=== PATIENT | female | born 1995 | race African-American/Black ===

== ENCOUNTER 2017-07-13 05:06 | Emergency (ER) | payer SELFPAY ==
[2017-07-13] MEDS ORDERED: Ketorolac Tromethamine 30 MG/ML VIAL ONE (05:26)
[2017-07-13] MEDS ORDERED: Amoxicillin/Potassium Clav 875 MG TAB ONE (05:35)
== END 2017-07-13 06:25 | disposition home or self-care (01) ==
LOC: ERS 05:06
DX: K02.9 Dental caries, unspecified (principal); M54.2 Cervicalgia
CPT/HCPCS: 96372; J1885

== ENCOUNTER 2019-04-24 23:19 | Emergency (ER) | payer SELFPAY | END 2019-04-25 01:58 | disposition home or self-care (01) | LOC: ERS 23:19 | DX: M54.2 Cervicalgia (principal) | CPT/HCPCS: 99281 ==

== ENCOUNTER 2021-02-08 18:57 | Emergency (ER) | payer OTHER, SELFPAY | END 2021-02-08 19:35 | disposition home or self-care (01) | LOC: ERS 18:57 | DX: S16.1XXA Strain of muscle, fascia and tendon at neck level, initial encounter (principal); V49.9XXA Car occupant (driver) (passenger) injured in unspecified traffic accident, initial encounter | CPT/HCPCS: 99283 ==

== ENCOUNTER 2022-11-11 22:25 | Emergency (ER) | payer SELFPAY ==
[~2022-11-11 22:25] MED LIST: Iopamidol-370 76% 500 ML 1 ML ONE
[2022-11-11] MEDS ORDERED: Ondansetron PF 4 MG/2 ML Vial ONE (23:04)
[2022-11-11] MEDS ORDERED: Morphine 4 MG/ML VIAL ONE (23:04)
[2022-11-11 23:08] LABS: BHCG - Serum Negative (NEGATIVE); Pregs Control Background? CLEAR/WHITE (CLR/WHITE); Pregs Control Bar Appear? YES (CONTROL BAR)
[2022-11-11 23:09] LABS: Hemoglobin 14.4 g/dL (12.0-16.0); Mean Corpuscular Hemoglobin 29.5 pg (27.0-31.0); Mean Corpuscular Volume 89.4 fl (78.0-98.0); RBC Distribution Width 12.9 % (11.5-14.5); Red Blood Cell (RBC) Count 4.89 mill/uL (4.20-5.40); White Blood Cell (WBC) Count 7.3 10x3/uL (4.8-10.8)
[2022-11-11 23:10] LABS: Bilirubin Negative (Negative); Blood, Urine Negative (Negative); Clarity Clear (Clear); Glucose, Urine (Dipstick) Normal (Negative); Ketone, Urine Negative (Negative); Leukocyte Negative Leu/uL (Negative); Nitrite Negative (Negative); Protein, Urine (Dipstick) Negative (Neg-Trace); Specific Gravity, Urine 1.008 (1.002-1.036); Urobilinogen Normal mg/dL (Less than 2); pH, Urine 6.5 (5.0-9.0)
[2022-11-11 23:22] LABS: ALT (SGPT) 21 U/L (8-55); AST (SGOT) 20 U/L (5-34); Albumin 3.7 g/dL (3.5-5.0); Alkaline Phosphatase 57 U/L (40-110); Anion Gap 17 mmol/L (10-20); BUN (Urea Nitrogen) 13 mg/dL (7.0-18.7); Bilirubin, Total 0.3 mg/dL (0.2-1.2); Calc. Creatinine Clearance 0 mL/min (70-130); Calcium 8.7 mg/dL (7.8-10.44); Carbon Dioxide 21 mmol/L (22-29); Chloride 104 mmol/L (98-107); Estimated GFR 73; Globulin 2.8 g/dL (2.4-3.5); Glucose 93 mg/dL (70-105); Lipase 37 U/L (8-78); Potassium 3.5 mmol/L (3.5-5.1); Protein, Total 6.5 g/dL (6.0-8.3); Sodium 138 mmol/L (136-145)
[2022-11-11 23:38] LABS: #Basophils 0.1 thou/uL (0.0-0.2); #Eosinphils 0.1 thou/uL (0.0-0.7); #Lymphocytes 2.2 thou/uL (1.20-3.40); #Monocytes 0.6 thou/uL (0.11-0.59); #Neutrophils 4.3 thou/uL (1.40-6.50); %Basophils 0.9 % (0.0-1.0); %Eosinophils 1.6 % (0.0-10.0); %Lymphocytes 30.3 % (21.0-51.0); %Monocytes 7.9 % (0.0-10.0); %Neutrophils 59.4 % (42.0-75.0); Large Platelets SLIGHT; MDiff Complete? YES; Mean Platelet Volume 11.4 fL (7.4-10.4); Platelet Count 107 10x3/uL (130-400); Platelet Morphology Comment Appears Decreased
[2022-11-12] MEDS ORDERED: cefTRIAXone\\ROCEPHIN 2 GM VIAL ONE (00:12)
== END 2022-11-12 02:32 | disposition home or self-care (01) ==
LOC: ERS 22:25
DX: R10.84 Generalized abdominal pain (principal); F17.210 Nicotine dependence, cigarettes, uncomplicated
CPT/HCPCS: 36415; 74177; 76856; 80053; 81003; 83605; 83690; 84703; 85025; 96374; 96375; J0696; J2270; J2405; Q9967

== ENCOUNTER 2023-08-08 08:50 | Emergency (ER) | payer OTHER, SELFPAY ==
[2023-08-08] MEDS ORDERED: Ketorolac Tromethamine 30 MG/ML VIAL ONE (09:01)
== END 2023-08-08 11:00 | disposition home or self-care (01) ==
LOC: ERS 08:50
DX: R09.1 Pleurisy (principal); Z87.891 Personal history of nicotine dependence
CPT/HCPCS: 71045; 96372; J1885

== ENCOUNTER 2023-09-08 14:33 | Emergency (ER) | payer OTHER ==
[2023-09-08] MEDS ORDERED: Mag-Al 1200 mg/1200 mg/30 ML UDCUP ONE (15:05)
[2023-09-08] MEDS ORDERED: Milk Of Magnesia 30 ML UDCUP ONE (15:09)
[2023-09-08 15:30] LABS: Bacteria/HPF None Seen HPF (None Seen); Bilirubin Negative (Negative); Blood, Urine 3+ (Negative); CAUTI Indications for Culture Pelvic or flank pain; Clarity Clear (Clear); Glucose, Urine (Dipstick) Normal (Negative); Ketone, Urine Negative (Negative); Leukocyte Negative Leu/uL (Negative); Nitrite Negative (Negative); Protein, Urine (Dipstick) Negative (Neg-Trace); Specific Gravity, Urine 1.033 (1.002-1.036); Squamous Epithelial 0-3 HPF (0-3); Urobilinogen Normal mg/dL (Less than 2); WBC/HPF 0-3 HPF (0-3); pH, Urine 5.5 (5.0-9.0)
[2023-09-08 15:33] LABS: Urine Culture Reflex No No
[2023-09-08 15:40] LABS: #Eosinphils 0.1 thou/uL (0.0-0.7); #Monocytes 0.7 thou/uL (0.11-0.59); #Neutrophils 5.5 thou/uL (1.40-6.50); %Basophils 0.4 % (0.0-1.0); %Eosinophils 1.2 % (0.0-10.0); %Lymphocytes 30.8 % (21.0-51.0); %Monocytes 7.3 % (0.0-10.0); %Neutrophils 59.6 % (42.0-75.0); Hematocrit 43.8 % (36.0-47.0); Hemoglobin 14.4 g/dL (12.0-16.0); Mean Corpuscular HGB CONC 32.9 g/dL (32.0-36.0); Mean Corpuscular Hemoglobin 29.1 pg (27.0-31.0); Mean Corpuscular Volume 88.5 fl (78.0-98.0); Mean Platelet Volume 12.7 fL (7.4-10.4); Platelet Count 149 10x3/uL (130-400); RBC Distribution Width 13.6 % (11.5-14.5); Red Blood Cell (RBC) Count 4.95 mill/uL (4.20-5.40); White Blood Cell (WBC) Count 9.2 10x3/uL (4.8-10.8)
[2023-09-08 16:03] LABS: ALT (SGPT) 20 U/L (8-55); AST (SGOT) 18 U/L (5-34); Albumin 3.4 g/dL (3.5-5.0); Alkaline Phosphatase 60 U/L (40-110); Anion Gap 10 mmol/L (10-20); BUN (Urea Nitrogen) 13 mg/dL (7.0-18.7); Bilirubin, Total 0.3 mg/dL (0.2-1.2); Calc. Creatinine Clearance 0 mL/min (70-130); Calcium 8.1 mg/dL (7.8-10.44); Carbon Dioxide 23 mmol/L (22-29); Chloride 110 mmol/L (98-107); Estimated GFR 85; Globulin 2.4 g/dL (2.4-3.5); Glucose 93 mg/dL (70-105); Lipase 24 U/L (8-78); Protein, Total 5.8 g/dL (6.0-8.3); Sodium 139 mmol/L (136-145)
== END 2023-09-08 17:52 | disposition home or self-care (01) ==
LOC: ERS 14:33
DX: K21.9 Gastro-esophageal reflux disease without esophagitis (principal); Z20.822 Contact with and (suspected) exposure to COVID-19; Z87.891 Personal history of nicotine dependence
CPT/HCPCS: 36415; 80053; 81001; 83690; 85025; 87635; 87804; 99284

== ENCOUNTER 2023-10-18 17:57 | Emergency (ER) | payer OTHER ==
[2023-10-18] MEDS ORDERED: Ketorolac Tromethamine 30 MG (1 mL) VIAL ONE (18:27)
== END 2023-10-18 19:01 | disposition home or self-care (01) ==
LOC: ERS 17:57
DX: K02.9 Dental caries, unspecified (principal); K04.7 Periapical abscess without sinus; Z87.891 Personal history of nicotine dependence
CPT/HCPCS: 96372; 99282; J1885

== ENCOUNTER 2024-11-07 14:31 | Emergency (ER) | payer OTHER | END 2024-11-07 18:28 | disposition home or self-care (01) | LOC: ERS 14:31 | DX: M72.2 Plantar fascial fibromatosis (principal); M76.62 Achilles tendinitis, left leg; Z87.891 Personal history of nicotine dependence | CPT/HCPCS: 99283 ==